=== PATIENT | female | born 1970 | race Caucasian/White ===

== ENCOUNTER 2017-05-04 14:17 | Emergency (ER) | payer SELFPAY ==
[~2017-05-04] VITALS: Ht 177.8 cm; Wt 113.0 kg
[~2017-05-04 14:17] MED LIST: PRED20 PO
[2017-05-04 14:39] VITALS: BP 104/59; PULSE 106; RESP 16; TEMP 97.7; O2SAT 95
[2017-05-04 15:00] VITALS: BP 108/69; PULSE 102; RESP 18
[2017-05-04] MEDS ORDERED: DEXA1TAB PO (15:44)
--- NOTE | 2017-05-04 16:08 | PD ---
HPI Chief Complaint: Abdominal Pain Time Seen by Provider: 14:54 Travel History International Travel<30 days: No Contact w/Intl Traveler<30days: No Traveled to known affect area: No History of Present Illness HPI The patient was seen and examined in the presence of the nurse. At no point in time was I and the room without the nurse present. This patient had a complicated hospital stay had [place]. She had colitis with microperforation and abscess formation. She had a drain placed. She didn't like the care she was receiving and signed out AGAINST MEDICAL ADVICE 2 days ago. She decided to call 911 and come to this hospital today. She complains of abdominal pain of moderate severity. No alleviating factors. She is currently taking oral antibiotics. No exacerbating factors. Duration of illness 5 weeks PFSH Past Medical History Diminished Hearing: No Endocrine: Yes (addisons since 10 years old) Tetanus Vaccination: Unknown Influenza Vaccination: No ?: Not LMP: does not get them Past Surgical History Other Surgery: Yes (MASIVE FACIAL RECONSTRUCTION PER PT) Social History Tobacco Use: No Substance Use: No Allergies-Medications (Allergen,Severity, Reaction): Coded Allergies: Penicillins (Verified Allergy, Unknown, Rash, 05/04/17) Reported Meds & Prescriptions Reported Meds & Active Scripts Active Reported Dexamethasone 1 Mg Tab 1 Mg PO DAILY Review of Systems General / Constitutional: No: Fever Eyes: No: Visual changes HENT: No: Headaches Cardiovascular: No: Chest Pain or Discomfort Respiratory: No: Shortness of Breath Gastrointestinal: Positive: Nausea, Abdominal Pain Genitourinary: No: Dysuria Musculoskeletal: No: Pain Skin: No Rash Neurologic: No: Weakness Psychiatric: No: Depression Endocrine: No: Polydipsia Hematologic/Lymphatic: No: Easy Bruising Physical Exam Narrative GENERAL: Well-nourished, well-developed patient in no apparent distress. SKIN: Focused skin assessment reveals no rash and nodules. Skin is Warm and dry. HEAD: Atraumatic. Normocephalic. EYES: Pupils equal and round. No scleral icterus. No injection or drainage. ENT: No nasal bleeding or discharge. Mucous membranes pink and moist. NECK: Trachea midline. No JVD. CARDIOVASCULAR: Regular rate and rhythm. No murmur appreciated. RESPIRATORY: No accessory muscle use. Clear to auscultation. Breath sounds equal bilaterally. GASTROINTESTINAL: Abdomen soft, morbidly obese, diffuse mild tenderness without rebound or guarding. Hepatic and splenic margins not palpable. Has a drain in the suprapubic region. MUSCULOSKELETAL: No obvious deformities. No clubbing. No cyanosis. Symmetric lower extremity and feet edema . NEUROLOGICAL: Awake and alert. No obvious cranial nerve deficits. Motor grossly within normal limits. Normal speech. PSYCHIATRIC: Agitated/aggravated and overly judgmental mood and affect; insight and judgment seems poor. Data Data Last Documented VS Vital Signs Date Time Temp Pulse Resp B/P (MAP) Pulse Ox O2 Delivery O2 Flow Rate FiO2 05/04/17 15:00 102 18 108/69 (82) 05/04/17 14:39 97.7 95 Room Air MDM Medical Decision Making Medical Screen Exam Complete: Yes Emergency Medical Condition: Yes Medical Record Reviewed: Yes Differential Diagnosis Colitis, abscess, poor decision making Narrative Course I have reviewed the patient's electronic medical record. I don't have access to [facility] records. I recommended that we place an IV and obtain lab studies and a CT of abdomen and pelvis to evaluate this patient as well as obtain records from [facility] to see what they did and thought. Patient was somewhat judgment on argumentative and very critical and criticized many things. She decided to leave AGAINST MEDICAL ADVICE and did not allow us to do anything here. Diagnosis Primary Impression: Abdominal pain Qualified Codes: R10.84 - Generalized abdominal pain Disposition: 07 AGAINST MEDICAL ADVICE Leonardo Ravi MD May 04, 2017 16:08
== END 2017-05-04 16:20 | disposition left against medical advice (07) ==
LOC: PHED 14:17
DX: R10.84 Generalized abdominal pain (principal)
CPT/HCPCS: 99281